=== PATIENT | female | born 1965 | race American Indian/Alaskan Native ===

== ENCOUNTER 2016-10-13 13:15 | Emergency (ER) | payer BC ==
[2016-10-13 13:42] VITALS: BP 138/87
[2016-10-13] MEDS ORDERED: MUCINEX ER PO ONE (14:56)
--- NOTE | 2016-10-13 15:56 | XRay Report ---
CHEST 2 VIEWS INDICATION: Productive cough. COMPARISON: None similar at this institution. FINDINGS: PA and lateral chest radiographs demonstrate mild exaggerated cardiomediastinal silhouette and grossly clear lungs, given the inspiration. Unremarkable bones. CONCLUSION: No definite acute chest process, as described. Thank you for the opportunity to participate in this patient's care.
--- NOTE | 2016-10-13 17:21 | Emergency Department Report ---
Entered by PEYTON MORALES, acting as scribe for ADRYAN GARDUNO PA. - General Chief Complaint: Upper Respiratory Infection Stated Complaint: BAD COUGH/SOB/WEAKNESS Time Seen by Provider: 10/13/16 14:22 Source: patient Mode of arrival: Ambulatory Limitations: No Limitations - History of Present Illness Initial Comments: 51 y/o female, with no PMHx presents with constant, mild green sputum producing cough that started 3 days ago. Sx include chills but pt denies n/v, sore throat or chest pain. She notes that her cough has caused her to lose her voice. No additional Sx. MD Complaint: cough -: days(s) (3 days) Severity: mild Severity scale (0 -10): 3 Consistency: constant Improves With: nothing Worsens With: nothing Associated Symptoms: denies other symptoms, chills. denies: fever, myalgias, diaphoresis, headache, abdominal pain, nausea, vomiting, diarrhea, dysuria, rash - Related Data Previous Rx's Medication Instructions Recorded Last Taken Type Azithromycin [Zithromax] 250 mg PO DAILY #1 pack 10/13/16 Unknown Rx Benzonatate [Tessalon Perles] 100 mg PO Q8HR #21 capsule 10/13/16 Unknown Rx guaiFENesin [Mucinex] 600 mg PO BID #24 tab 10/13/16 Unknown Rx Allergies Allergy/AdvReac Type Severity Reaction Status Date / Time codeine AdvReac Hives Verified 10/13/16 13:44 ED Review of Systems Comment: All other systems reviewed and negative Constitutional: chills. denies: fever ENT: denies: throat pain Respiratory: cough (productive green sputum) Cardiovascular: denies: chest pain Gastrointestinal: denies: abdominal pain, nausea, vomiting Neurological: denies: headache, weakness, numbness ED Past Medical Hx - Past Medical History Previous Medical History?: No - Surgical History Past Surgical History?: Yes Additional Surgical History: - Social History Smoking Status: Never Smoker Substance Use Type: None - Medications Home Medications: Home Medications Medication Instructions Recorded Confirmed Last Taken Type Azithromycin [Zithromax] 250 mg PO DAILY #1 pack 10/13/16 Unknown Rx Benzonatate [Tessalon Perles] 100 mg PO Q8HR #21 capsule 10/13/16 Unknown Rx guaiFENesin [Mucinex] 600 mg PO BID #24 tab 10/13/16 Unknown Rx ED Physical Exam - General Limitations: No Limitations - Other Other exam information: GENERAL: Patient is alert and oriented x 3. No apparent distress, normal gait, atraumatic. HEAD: Head is normocephalic and atraumatic. EYES: Extraocular movements are intact. Pupils are equal, round, and reactive to light and accommodation. EARS: Symmetrical, atraumatic, non tender, ear canal clear with moderate cerumen , tympanic membrane non inflamed. Gross auditory nml bilaterally. NOSE: Nose symmetrical, nontender. Nares appeared normal. MOUTH:Mouth is well hydrated and without lesions. Mucous membranes are moist. Uvula midline. Tongue not elevated. Posterior pharynx clear, no exudate or lesions. Tonsils are not erythematous or swollen with no exudates. Patent airway. to palpation on all quadrants. No organomegaly was noted. Positive bowel sounds. No CVA tenderness. NECK: no cervical tenderness, no swelling, no lympadenopathy. EXTREMITIES/MUSCULOSKELETAL: No cyanosis, clubbing, rash, lesions or edema. Full ROM bilaterally. SKIN: Warm and dry. No lesions, ulceration or induration present ED Course Vital Signs 10/13/16 13:40 Temperature 99.1 F Pulse Rate 116 H Respiratory 16 Rate Blood Pressure 138/87 O2 Sat by Pulse 100 Oximetry ED Medical Decision Making - Medical Decision Making 51-year-old female presents with upper respiratory tract infection ED course: Chest x-ray ordered. Chest x-ray normal no acute process. Discussed findings with patient. Discuss with the patient to take antibiotic as prescribed. Discussed with patient to follow up with PCP as referred, and to return to the ED if her symptoms return or worsen. Patient states understanding and will follow instructions. Vital signs stable, patient is in no acute distress. ED Disposition Clinical Impression: URI (upper respiratory infection) Qualifiers: URI type: unspecified URI Qualified Code(s): J06.9 - Acute upper respiratory infection, unspecified Disposition: DC- TO HOME OR SELFCARE Is pt being admited?: No Does the pt Need Aspirin: No Condition: Stable Instructions: Upper Respiratory Infection (ED) Prescriptions: Azithromycin [Zithromax] 250 mg PO DAILY #1 pack Benzonatate [Tessalon Perles] 100 mg PO Q8HR #21 capsule guaiFENesin [Mucinex] 600 mg PO BID #24 tab Referrals: PRIMARY CARE, [Primary Care Provider] - 3-[address]ER MD [Referring] - 3-5 Days [facility] [Outside] - 3-5 Days [facility] [Outside] - 3-5 Days [facility] [Outside] - 3-5 Days Forms: Work/School Release Form(ED) This documentation as recorded by the CARMEN villegas RYAN,accurately reflects the service I personally performed and the decisions made by ,ADRYAN GARDUNO PA.
== END 2016-10-13 15:30 | disposition home or self-care (01) ==
LOC: ED 13:15
DX: J06.9 Acute upper respiratory infection, unspecified (principal); Z88.6 Allergy status to analgesic agent
CPT/HCPCS: 71020; 99283